=== PATIENT | female | born 1965 | race Two or more races ===

== ENCOUNTER 2017-09-09 08:12 | Inpatient (IN) | payer MEDICAID ==
[2017-09-06 10:03] LABS: APPEARANCE,URINE CLEAR; BILIRUBIN, URINE NEGATIVE (NEGATIVE); COLOR,URINE PALE YELLOW; GLUCOSE, URINE (UA) NEGATIVE (NEGATIVE); KETONES,URINE NEGATIVE (NEGATIVE); LEUKOCYTE ESTERASE ,URINE 1+ (NEGATIVE); NITRITE,URINE NEGATIVE (NEGATIVE); PH,URINE 5 (4.5-8.0); PROTEIN,URINE NEGATIVE (NEGATIVE); UROBILINOGEN,URINE NORMAL MG/DL (0.0-1.0)
[2017-09-06 10:05] LABS: BASOPHILS % (AUTO) 0.9 % (0.0-2.0); EOSINOPHILS % (AUTO) 5.5 % (0.0-3.0); HEMATOCRIT 42.7 % (37.0-47.0); HEMOGLOBIN 14.6 G/DL (12.0-16.0); LYMPHOCYTES % (AUTO) 37.6 % (20.0-45.0); MEAN CORPUSCULAR VOLUME 89 FL (80-99); MONOCYTES % (AUTO) 4.8 % (1.0-10.0); NEUTROPHILS % (AUTO) 51.3 % (45.0-75.0); PLATELET COUNT 265 K/UL (150-450); RED BLOOD COUNT 4.81 M/UL (4.20-5.40); RED CELL DISTRIBUTION WIDTH 10.4 % (11.6-14.8); WHITE BLOOD COUNT 7.5 K/UL (4.8-10.8)
[2017-09-06 10:14] LABS: INR 0.9 (0.9-1.1)
[2017-09-06 10:22] LABS: ANION GAP 8 mmol/L (5-15); BLOOD UREA NITROGEN 17 mg/dL (7-18); CALCIUM 8.9 MG/DL (8.5-10.1); CARBON DIOXIDE 26 MMOL/L (21-32); CHLORIDE 106 MMOL/L (98-107); CREATININE 0.8 MG/DL (0.55-1.30); POTASSIUM 3.9 MMOL/L (3.5-5.1); SODIUM 140 MMOL/L (136-145)
--- NOTE | 2017-09-06 15:17 | Diagnostic Imaging Report ---
Indication: Cough Technique: 2 views of the chest Comparison: None Findings: Calcified granulomata are seen in the left lung apex. The lungs and pleural spaces are otherwise clear. The heart size is normal. The bones are unremarkable Impression: Negative
--- NOTE | 2017-09-08 16:45 | Pre-op HX & Phy Repo 2 SIG ---
DATE OF ADMISSION: 09/09/2017 ANTICIPATED DATE OF SURGERY: Scheduled for surgery on September 09, 2017. HISTORY OF PRESENT ILLNESS: The patient is a 52-year-old female who presented recently for breast screening with screening mammogram with finding subsequently of architectural distortion of the left breast at 3 o'clock. Ultrasound showed a malignant-appearing irregular mass at 3 o'clock, 6 cm from the nipple measuring 2 x 1 x 1 cm. Core biopsy revealed invasive ductal carcinoma. The tumor is estrogen receptor positive, progesterone receptor positive, and HER2-negative. She is scheduled to undergo left breast partial mastectomy with preoperative needle localization and left axillary lymph node biopsy. PAST MEDICAL HISTORY: MEDICATIONS: None. ALLERGIES: None. OPERATIONS: section x2. PHYSICAL EXAMINATION: VITAL SIGNS: The patient is 5 feet 5 inches, 180 pounds. HEENT: Within normal limits. LUNGS: Clear. HEART: Regular rhythm. BREASTS: Large and ptotic. There were no palpable masses in either breast. There were no skin or nipple changes. There is no palpable axillary or supraclavicular lymphadenopathy. ABDOMEN: Soft. PELVIC: Per primary care physician. RECTAL: Per primary care physician. EXTREMITIES: Without edema. NEUROLOGIC: Physiologic. IMPRESSION: Invasive ductal carcinoma, left breast. PLAN: I have had a full discussion with the patient regarding the nature of her condition, the nature of the surgery, indications, alternatives, options, and risks including bleeding, infection, scarring and distortion of the breast, need for additional surgery or procedures based on final pathology, need for postoperative radiation therapy and potentially chemotherapy and endocrine therapy. All questions have been answered. The patient understands and agrees to proceed. Danny Malloy M.D. DR: Samm JOB#: [id number] CC:
[~2017-09-09] VITALS: Ht 162.6 cm; Wt 81.6 kg
[2017-09-09] VITALS (9 sets, daily range): BP systolic 121–154; BP diastolic 76–93
[~2017-09-09 08:12] MED LIST: NKM
[2017-09-09] MEDS ORDERED: Bupivacaine 0.5% Inj 30 ml vial INJ ONE (09:00)
[2017-09-09] MEDS ORDERED: Lidocaine 1% 10mg/ml/Epi 0.005mg/ml 30ml vial INJ ONE (09:00)
--- NOTE | 2017-09-09 12:52 | Pre-Procedure Note/Attestation ---
Pre-Procedure Note/Attestation Complete Prior to Procedure Planned Procedure: left Procedure Narrative: left breast partial mastectomy with needle localization and left axillary lymph node biopsy Indications for Procedure Pre-Operative Diagnosis: invasive ductal carcinoma left breast Attestation I attest that I discussed the nature of the procedure; its benefits; risks and complications; and alternatives (and the risks and benefits of such alternatives ), prior to the procedure, with the patient (or the patient's legal business representative). I attest that, if there was a reasonable possibility of needing a blood transfusion, the patient (or the patient's legal business representative) was given the [facility] standardized written summary, pursuant to the Will [place] Blood Safety Act ([place] Health and Safety Code # 1645, as amended). I attest that I re-evaluated the patient just prior to the surgery and that there has been no change in the patient's H&P, except as documented below:none Danny Malloy MD Sep 09, 2017 12:52
[2017-09-09] MEDS ORDERED: fentaNYL 100 mcg/2 mL IV ONE (12:57)
[2017-09-09] MEDS ORDERED: Lidocaine 1% MPF 10mg/ml 5ml ONE (12:57)
[2017-09-09] MEDS ORDERED: Midazolam 2mg/2ml Inj ONE (12:57)
[2017-09-09] MEDS ORDERED: Propofol 200mg/20ml IV ONE (12:57)
[2017-09-09] MEDS ORDERED: LR 1000ml ONE (13:00)
[2017-09-09] MEDS ORDERED: Sterile Water Irrig 1000ml IRRIG ONE (13:00)
[2017-09-09] MEDS ORDERED: NS Irrig 1000ml ONE (13:00)
[2017-09-09] MEDS ORDERED: LR 1000ml 1,000 ML IVLG SCH (13:37)
--- NOTE | 2017-09-09 13:37 | Anethesia Preoperative Eval ---
Anesthesia Pre-op PMH/ROS General Date of Evaluation: Sep 09, 2017 Anesthesiologist: Nathaniel ASA Score: ASA 3 Mallampati Score Class I : Soft palate, uvula, fauces, pillars visible Class II: Soft palate, uvula, fauces visible Class III: Soft palate, base of uvula visible Class IV: Only hard plate visible Mallampati Classification: Class II Surgeon: Gama Diagnosis: LEft breast carcinoma Surgical Procedure: Left breast partial mastectomy with axillary lymph node biopsy Anesthesia History: none Family History: no anesthesia problems Allergies: Coded Allergies: No Known Allergies (Unverified , 09/09/17) Medications: see eMAR Past Medical History Cardiovascular: Reports: other - HLD; Denies: HTN, CAD, [place], valve dz, arrhythmia Pulmonary: Denies: asthma, COPD, MARY, other Gastrointestinal/Genitourinary: Denies: GERD, CRI, ESRD, other Neurologic/Psychiatric: Denies: dementia, CVA, depression/anxiety, TIA, other Endocrine: Denies: DM, hypothyroidism, steroids, other HEENT: Denies: cataract (L), cataract (R), glaucoma, [place] (L), [place] (R), other Hematology/Immune: Reports: other - carcinoma left breast; Denies: anemia, DVT, bleeding disorder Musculoskeletal/Integumentary: Denies: OA, RA, DJD, DDD, edema, other PSxH Narrative: c/sX2 Anesthesia Pre-op Phys. Exam Physician Exam Last Vital Signs Date Time Temp Pulse Resp B/P (MAP) Pulse Ox O2 Delivery O2 Flow Rate FiO2 09/09/17 08:54 97.0 72 18 138/84 (102) 97 97.0 09/09/17 08:35 Room Air Constitutional: NAD Cardiovascular: RRR Respiratory: CTA Airway Exam Mallampati Score: Class II MO: limited ROM: full Teeth: missing Dentures: upper, lower Anesthesia Pre-op A/P Labs see chart Urine Test Test 09/09/17 09:50 Urine HCG, Qualitative Negative (NEGATIVE) Studies Pre-op Studies: EKG - rbbb Risk Assessment & Plan Assessment: ASA III Plan: GA Status Change Before Surgery: No Pre-Antibiotics Drug: Ancef 2g Given Within 1 Hr of Incision: Yes Gloria Rose MD Sep 09, 2017 13:37
[2017-09-09] MEDS ORDERED: Hydromorphone 0.5mg/0.5ml inj IVP PRN (13:45)
[2017-09-09] MEDS ORDERED: DiphenhydrAMINE 50mg/ml Inj IVP PRN (13:45)
[2017-09-09] MEDS ORDERED: Labetalol 5mg/ml 20ml vial IV PRN (13:45)
[2017-09-09] MEDS ORDERED: fentaNYL 100 mcg/2 mL IV PRN (13:45)
[2017-09-09] MEDS ORDERED: Dexamethasone 4mg/ml vial ONE (14:28)
--- NOTE | 2017-09-09 15:01 | Brief Operative Note ---
Immediate Post Operative Note Operative Note Pre-op Diagnosis: invasive ductal carcinoma left breast Procedure: left breast partial mastectomy with needle localization and left axillary lymph node biopsy Post-op Diagnosis: same Post-op Diagnosis: same as pre-op Findings: consistent w/pre-op dx studies Surgeon: elly Anesthesiologist: ernst Anesthesia: general Specimen: yes - left breast and left axillary node Complications: none Condition: stable Fluids: see anesthesia record Estimated Blood Loss: minimal Drains: DAVID Implant(s) used?: No Danny Malloy MD Sep 09, 2017 15:01
--- NOTE | 2017-09-09 15:01 | Immediate Post-Op Evaluation ---
Immediate Post-Op Evalulation Immediate Post-Op Evalulation Procedure: LEft breast partial mastectomy with axillary lymph node biopsy Date of Evaluation: Sep 09, 2017 Time of Evaluation: 15:03 IV Fluids: 1.2L Blood Products: 0 Estimated Blood Loss: min Urinary Output: 0 Blood Pressure Systolic: 121 Blood Pressure Diastolic: 77 Pulse Rate: 86 Respiratory Rate: 16 O2 Sat by Pulse Oximetry: 100 Temperature (Fahrenheit): 97 Pain Score (1-10): 0 Nausea: No Vomiting: No Complications 0 Patient Status: awake, reacts, patent, none Hydration Status: adequate Drug: Ancef 2g Given Within 1 Hr of Incision: Yes Time Given: 13:15 Gloria Rose MD Sep 09, 2017 15:01
--- NOTE | 2017-09-09 17:15 | Operative Note - Dictated ---
DATE OF OPERATION: 09/09/2017 SURGEON: Danny Malloy M.D. PUBLICATION EDITOR: None. ANESTHESIOLOGIST: Dr. Armstrong. TYPE OF ANESTHESIA: General endotracheal. PREOPERATIVE DIAGNOSIS: Invasive ductal carcinoma, left breast. POSTOPERATIVE DIAGNOSIS: Invasive ductal carcinoma, left breast. OPERATION PERFORMED: Left breast partial mastectomy with preoperative needle localization and left axillary lymph node biopsy. DESCRIPTION OF PROCEDURE: The patient was taken to the operating room and under general anesthesia with sequential compression device stockings in place and having received intravenous antibiotics, she was prepped and draped in usual fashion. The lesion was located in the left outer breast. A transverse curvilinear incision was made achieving hemostasis with cautery. Flaps were dissected circumferentially. The appropriate section of breast tissue was widely excised with a wire from needle localization contained within the tissue. Hemostasis was achieved with cautery. The pathologist confirmed the presence of a lesion within the tissue. The field was irrigated and hemostasis was secured. The incision was closed with interrupted 3-0 Vicryl subcutaneous sutures followed by continuous 4-0 Monocryl subcuticular suture. Attention was then directed to the left axilla where a transverse curvilinear axillary incision was made achieving hemostasis with cautery and incising the clavipectoral fascia. A lower level palpable node was apparent and resected achieving hemostasis with clips and cautery. Through a separate stab incision inferior, a 19-mm Jericho drain was placed into the incision and sutured to the skin with 2-0 silk suture. After ascertaining that hemostasis was secured, the pathology having confirmed the presence of lymph node, the incision was closed in layers with interrupted 3-0 Vicryl and then the skin closed with continuous 4-0 Monocryl subcuticular suture. Tincture of benzoin and half-inch Steri-Strips were applied to both incisions followed by dry sterile dressing. Final sponge and needle counts were correct. The postoperative breast surgery brassiere was applied. The patient tolerated the procedure well and left the operating room in good condition. Danny Malloy M.D. DR: Samm JOB#: [id number] CC:
[2017-09-09] MEDS: D5 1/2NS w/KCl 20mEq 1,000 ML IV SCH (18:05)
[2017-09-09] MEDS: HYDROmorphone 1mg/ml Carpuject SUBQ PRN (18:32)
[2017-09-10] VITALS: BP 131/72
[2017-09-10] MEDS: HYDROmorphone 1mg/ml Carpuject SUBQ PRN (01:15)
[2017-09-10] MEDS: D5 1/2NS w/KCl 20mEq 1,000 ML IV SCH ×2 (02:16→12:50)
[2017-09-10 04:00] VITALS: BP 119/68
[2017-09-10 08:00] VITALS: BP 105/58
--- NOTE | 2017-09-10 08:28 | General Progress Note ---
Progress Note Progress Note AVSS Having nausea and emesis with ambulation. Received Dilaudid SQ during the night left breast and axilla incisions are clean with intact steristrips, mild soft tissue swelling DAVID drain 20cc serosang Imp. Nausea and emesis post-op Plan; continue current regimen Danny Malloy MD Sep 10, 2017 08:28
[2017-09-10] MEDS: Norco 5mg/325mg tab ORAL PRN ×2 (10:24→18:52)
--- NOTE | 2017-09-10 11:50 | 48 Hour Post Anesthesia Eval ---
Post Anesthesia Evaluation Procedure: LEft breast partial mastectomy with axillary lymph node biopsy Date of Evaluation: Sep 10, 2017 Time of Evaluation: 06:40 Blood Pressure Systolic: 119 0: 68 Pulse Rate: 70 Respiratory Rate: 18 Temperature (Fahrenheit): 97.6 O2 Sat by Pulse Oximetry: 99 Airway: patent Nausea: No Vomiting: No Pain Intensity: 1 Hydration Status: adequate Cardiopulmonary Status: at baseline Mental Status/LOC: patient returned to baseline Post-Anesthesia Complications: 0 Follow-up care needed: N/A - further care as per primary team Gloria Rose MD Sep 10, 2017 11:50
[2017-09-10 12:00] VITALS: BP 106/59
[2017-09-10 16:34] VITALS: BP 104/60
[2017-09-10 20:00] VITALS: BP 109/61
[2017-09-11] VITALS: BP 102/62
[2017-09-11 04:00] VITALS: BP 110/70
[2017-09-11] MEDS: Norco 5mg/325mg tab ORAL PRN ×2 (04:36→12:51)
[2017-09-11 08:00] VITALS: BP 103/63
--- NOTE | 2017-09-11 10:47 | General Progress Note ---
Progress Note Progress Note AVSS Much improved with nausea resolved Left breast and axillary incisions clean, dry DAVID 35cc Imp. doing well Plan: discharge tylenol + ibuprofen for pain record DAVID outputs TID f/u 09/14 office Danny Malloy MD Sep 11, 2017 10:47
[2017-09-11 12:00] VITALS: BP 125/79
--- NOTE | 2017-09-14 13:21 | Discharge Summary ---
Discharge Summary Hospital Course Date of Admission Sep 09, 2017 at 17:36 Date of Discharge Sep 11, 2017 at 13:05 Admitting Diagnosis carcinoma left breast Reason for Hospitalization: elective surgery HPI Betty Garcia is a 52 year old female who was admitted on Sep 09, 2017 at 17: 36 for carcinoma left breast. Patient was admitted for elective surgery. Procedures s/p 09/09/[address] Malloy Left breast partial mastectomy with preoperative needle localization and left axillary lymph node biopsy. Hospital Course s/p surgery course of recovery uneventful initially nauseous IV fluids , antiemetics prn pain management , pain addressed and controlled DAVID drain output closely monitored incision of left breast and axilla clean with intact steri-strips nausea resolved patient was able to tolerate diet ambulated freely voided without difficulty dc instructions provided teaching on DAVID care done,. with importance of recording output tid pain management at home with Tylenol and ibuprofen prn follow-up with surgeon 09/14 at the office FINAL DIAGNOSE Invasive ductal carcinoma, left breast s/p Left breast partial mastectomy Discharge Condition Upon Discharge: stable Discharge Disposition Patient was discharged to Home () Discharge Instructions Discharge Instructions Special Instructions I have been assigned to complete a D/C Summary on this account. I was not involved in the patient management Sandhya Naik NP Sep 14, 2017 13:21
== END 2017-09-11 13:05 | disposition home or self-care (01) | DRG 363 ==
LOC: SUR 08:12 → 3E 17:36
PROC: 07B60ZX Excision of Left Axillary Lymphatic, Open Approach, Diagnostic (ICD-10-PCS; 2017-09-09)
PROC: 0HBU0ZZ Excision of Left Breast, Open Approach (ICD-10-PCS; principal; 2017-09-09 13:30)
DX: C50.812 Malignant neoplasm of overlapping sites of left female breast (principal); R11.2 Nausea with vomiting, unspecified; Z17.0 Estrogen receptor positive status [ER+]
CPT/HCPCS: 36415; 71046; 80048; 81003; 81025; 85025; 85610; 85730; 93005; 94003; 94150; J2250; J2405

== ENCOUNTER 2017-10-04 08:47 | Day surgery (SDC) | payer MEDICAID ==
--- NOTE | 2017-09-30 15:30 | Pre-op HX & Phy Repo 2 SIG ---
DATE OF ADMISSION: 10/04/2017 DATA OF SURGERY: Scheduled for outpatient surgery October 04, 2017. HISTORY OF PRESENT ILLNESS: The patient is a 52-year-old female, in good health, who underwent surgery September 09, 2017, for invasive ductal carcinoma of the left breast, which was estrogen receptor and progesterone receptor positive and HER2-negative. On that date, she underwent left breast partial mastectomy with preoperative needle localization and left axillary lymph node biopsy. The final pathology revealed metastatic carcinoma in one lymph node and invasive tumor present at the inked medial margin despite the gross assessment during surgery. The patient has been seen in consultation by Medical Oncology and our feeling is that she should undergo re-excision of the positive margin to avoid a boost of radiation over the heart as the medial margin was positive with the lesion located in the left breast at 3 o'clock 6 cm from the nipple. The patient has healed uneventfully from the surgery several weeks ago and has full range of motion of the left shoulder. PAST MEDICAL HISTORY: MEDICATIONS: None. ALLERGIES: None. OPERATIONS: section x2. PHYSICAL EXAMINATION: GENERAL: The patient is well developed and well nourished. VITAL SIGNS: The patient is 5 feet 5 inches, 180 pounds. HEENT: Within normal limits. LUNGS: Clear. HEART: Regular rhythm. BREASTS: Large and ptotic. There is a healed incision curvilinear vertically oriented in the left outer breast and a transverse left axillary incision. Both incisions are healing uneventfully. ABDOMEN: Soft. PELVIC: Per primary care physician. RECTAL: Per primary care physician. EXTREMITIES: Without edema. NEUROLOGIC: Physiologic. IMPRESSION: Invasive ductal carcinoma, left breast, status post partial mastectomy with positive medial margin. PLAN: Re-excision carcinoma of left breast. I had a full discussion with the patient and her family regarding the nature of the problem, the nature of the surgery, indications, alternatives, options, and risks including bleeding, infection, need for additional procedures pending final pathology, difficulty with healing, scarring, change in shape or contour of the breast, etc. All questions have been answered. They understand and agreed to proceed under general anesthesia as an outpatient. Danny Malloy M.D. DR: KEVIN JOB#: [id number] CC: ALMA
[~2017-10-04] VITALS: Ht 165.1 cm; Wt 81.6 kg
[2017-10-04] VITALS (10 sets, daily range): BP systolic 119–157; BP diastolic 77–93
[~2017-10-04 08:47] MED LIST changes: +ceFAZolin sod 2 GM in NS 55 ML IVPB ONE
--- NOTE | 2017-10-04 10:16 | Pre-Procedure Note/Attestation ---
Pre-Procedure Note/Attestation Complete Prior to Procedure Planned Procedure: left Procedure Narrative: re-excision carcinoma left breast Indications for Procedure Pre-Operative Diagnosis: carcinoma left breast Attestation I attest that I discussed the nature of the procedure; its benefits; risks and complications; and alternatives (and the risks and benefits of such alternatives ), prior to the procedure, with the patient (or the patient's legal financial representative). I attest that, if there was a reasonable possibility of needing a blood transfusion, the patient (or the patient's legal financial representative) was given the [facility] standardized written summary, pursuant to the Will [place] Blood Safety Act ([place] Health and Safety Code # 1645, as amended). I attest that I re-evaluated the patient just prior to the surgery and that there has been no change in the patient's H&P, except as documented below: none Danny Malloy MD Oct 04, 2017 10:16
[2017-10-04] MEDS ORDERED: Sodium Chloride 10ml vial INJ ONE (10:48)
[2017-10-04] MEDS ORDERED: Lidocaine 1% Plain 30 ml INJ ONE (10:48)
[2017-10-04] MEDS ORDERED: Lidocaine 1% MPF 10mg/ml 5ml ONE (10:48)
[2017-10-04] MEDS ORDERED: Dexamethasone 4mg/ml vial ONE (10:48)
--- NOTE | 2017-10-04 10:51 | Anethesia Preoperative Eval ---
Anesthesia Pre-op PMH/ROS General Date of Evaluation: Oct 04, 2017 Time of Evaluation: 11:01 Anesthesiologist: Reyna ASA Score: ASA 3 Mallampati Score Class I : Soft palate, uvula, fauces, pillars visible Class II: Soft palate, uvula, fauces visible Class III: Soft palate, base of uvula visible Class IV: Only hard plate visible Mallampati Classification: Class II Surgeon: Gama Diagnosis: L Breast Carcinoma Surgical Procedure: Re-Excision of L Breast Carcinoma Anesthesia History: none Family History: no anesthesia problems Allergies: Coded Allergies: No Known Allergies (Unverified , 10/04/17) Medications: see eMAR Past Medical History Cardiovascular: Reports: other - HL Hematology/Immune: Reports: other - Breast CA PSxH Narrative: C/S X2, Previous Excision L Breast CA Anesthesia Pre-op Phys. Exam Physician Exam Last Vital Signs Date Time Temp Pulse Resp B/P (MAP) Pulse Ox O2 Delivery O2 Flow Rate FiO2 10/04/17 09:55 Room Air 10/04/17 09:51 98.1 63 18 119/77 (91) 95 98.1 Constitutional: NAD Neurologic: CN 2-12 intact Cardiovascular: RRR Respiratory: CTA Gastrointestinal: S/NT/ND Airway Exam Mallampati Score: Class II MO: full ROM: full Teeth: missing, intact Dentures: lower Anesthesia Pre-op A/P Risk Assessment & Plan Assessment: ASA 3 Plan: GA/TIVA Status Change Before Surgery: No Pre-Antibiotics Dru grams Ancef IV Given Within 1 Hr of Incision: Yes Time Given: 11:14 Feroz Orellana MD Oct 04, 2017 10:51
[2017-10-04] MEDS ORDERED: fentaNYL 100 mcg/2 mL IV ONE (10:54)
[2017-10-04] MEDS ORDERED: Midazolam 2mg/2ml Inj ONE (10:54)
[2017-10-04] MEDS ORDERED: Propofol 1,000mg/ 100ml btl IV ONE (11:00)
[2017-10-04] MEDS ORDERED: NS Irrig 1000ml ONE (11:00)
[2017-10-04] MEDS ORDERED: Sterile Water Irrig 1000ml IRRIG ONE (11:00)
[2017-10-04] MEDS ORDERED: LR 1000ml ONE (11:00)
[2017-10-04] MEDS ORDERED: NS Irrig 1000ml IRRIG ONE (11:05)
--- NOTE | 2017-10-04 11:40 | Immediate Post-Op Evaluation ---
Immediate Post-Op Evalulation Immediate Post-Op Evalulation Procedure: Re-Excision of L Breast Carcinoma Date of Evaluation: Oct 04, 2017 Time of Evaluation: 12:23 IV Fluids: 1000 LR Blood Products: 0 Estimated Blood Loss: 10 Urinary Output: 0 Blood Pressure Systolic: 141 Blood Pressure Diastolic: 85 Pulse Rate: 75 Respiratory Rate: 16 O2 Sat by Pulse Oximetry: 98 Temperature (Fahrenheit): 97.1 Pain Score (1-10): 2 Nausea: No Vomiting: No Complications 0 Patient Status: awake, reacts, patent, extubated, none Hydration Status: adequate Dru Grams Ancef IV Given Within 1 Hr of Incision: Yes Time Given: 11:14 Feroz Orellana MD Oct 04, 2017 11:40
--- NOTE | 2017-10-04 11:41 | 48 Hour Post Anesthesia Eval ---
Post Anesthesia Evaluation Procedure: Re-Excision of L Breast Carcinoma Date of Evaluation: Oct 04, 2017 Time of Evaluation: 14:34 Blood Pressure Systolic: 132 0: 76 Pulse Rate: 74 Respiratory Rate: 18 Temperature (Fahrenheit): 98.2 O2 Sat by Pulse Oximetry: 100 Airway: patent Nausea: No Vomiting: No Pain Intensity: 2 Hydration Status: adequate Cardiopulmonary Status: Stable Mental Status/LOC: patient returned to baseline Follow-up Care/Observations: 0 Post-Anesthesia Complications: 0 Follow-up care needed: ready to discharge Feroz Orellana MD Oct 04, 2017 11:41
--- NOTE | 2017-10-04 12:12 | Brief Operative Note ---
Immediate Post Operative Note Operative Note Pre-op Diagnosis: carcinoma left breast Procedure: re-excision carcinoma left breast Post-op Diagnosis: same Post-op Diagnosis: same as pre-op Findings: consistent w/pre-op dx studies Surgeon: elly Anesthesiologist: ashley Anesthesia: general Specimen: yes - left breast re-excision Complications: none Condition: stable Fluids: see anesthesia record Estimated Blood Loss: minimal Drains: none Implant(s) used?: No Danny Malloy MD Oct 04, 2017 12:12
[2017-10-04] MEDS ORDERED: Hydromorphone 0.5mg/0.5ml inj IVP PRN (13:00)
--- NOTE | 2017-10-04 16:45 | Operative Note - Dictated ---
DATE OF OPERATION: 10/04/2017 SURGEON: Danny Malloy M.D. BRAND COMMUNICATIONS MANAGER SURGEON: None. ANESTHESIOLOGIST: Feroz Orellana M.D. TYPE OF ANESTHESIA: General. PREOPERATIVE DIAGNOSIS: Carcinoma, left breast, status post partial mastectomy with positive medial margin. POSTOPERATIVE DIAGNOSIS: Carcinoma, left breast, status post partial mastectomy with positive medial margin. OPERATION PERFORMED: Re-excision of carcinoma, left breast. DESCRIPTION OF PROCEDURE: The patient was taken to the operating room and under general anesthesia with sequential compression device stockings in place and having received intravenous antibiotic, she was prepped and draped in the usual fashion. The surgical incision in the outer left breast from surgery of September 09, 2017, was reopened achieving hemostasis with cautery. Some residual seroma was aspirated. The medial border of the prior partial mastectomy site was readily identified and marked with a suture marker. Then the appropriate sector of breast tissue was resected achieving hemostasis with cautery and putting additional markers for the new medial margin and the superior aspect of the tissue for pathology orientation. The specimen was taken off the field for pathology. The field was copiously irrigated and hemostasis readily secured with cautery. The incision was closed with interrupted inverted 3-0 Vicryl deep dermal subcutaneous sutures followed by continuous 4-0 Monocryl subcuticular suture. Tincture of benzoin and half-inch Steri-Strips were applied followed by dry sterile dressing. Final sponge and needle counts were correct. The patient tolerated the procedure well and left the operating room in good condition. Danny Malloy M.D. DR: Samm JOB#: [id number] CC:
== END 2017-10-04 15:25 | disposition home or self-care (01) ==
LOC: SUR 08:47
DX: C50.912 Malignant neoplasm of unspecified site of left female breast (principal); C77.3 Secondary and unspecified malignant neoplasm of axilla and upper limb lymph nodes; E78.5 Hyperlipidemia, unspecified
CPT/HCPCS: 19301; 81025; J0690; J1100; J1170; J2001; J2250; J2405; J2704; J3010; J7120; Z7512; 94003; 94150